=== PATIENT | female | born 1960 | race Caucasian/White ===

== ENCOUNTER 2018-06-20 20:00 | Inpatient (IN) | payer BC ==
[2018-06-20] MEDS ORDERED: ONDANSETRON INJ 4 MG/2 ML VIAL IV ONE (20:20)
[2018-06-20] MEDS ORDERED: ASPIRIN TABLET 325 MG TAB PO ONE (20:20)
--- NOTE | 2018-06-20 20:24 | ED.PDOC ---
History of Present Illness - General Chief Complaint: Chest Pain/GA Stated Complaint: CP, right arm numbness, cold, clammy, SOB, N/V Time Seen by Provider: 06/20/18 20:12 Source: patient Exam Limitations: no limitations - History of Present Illness Timing/Duration: 1-3 hours Severity: moderate Location: substernal, epigastric Activities at Onset: activity Prior Chest Pain/Cardiac Workup: no prior chest pain Improving Factors: nothing Worsening Factors: nothing Nitro Today/Relief: no nitro taken today Aspirin Treatment Today: unknown Associated Symptoms: chest pain, diaphoresis, nausea/vomiting, weakness Allergies/Adverse Reactions: Allergies Codeine Allergy (Verified 06/20/18 20:12) Morphine Allergy (Verified 06/20/18 20:12) Review of Systems - Review of Systems Constitutional: States: diaphoresis. Denies: fever EENTM: States: no symptoms reported Respiratory: States: short of breath. Denies: cough Cardiology: States: chest pain. Denies: edema, syncope Gastrointestinal/Abdominal: States: nausea, vomiting Genitourinary: States: no symptoms reported Musculoskeletal: States: no symptoms reported Skin: States: no symptoms reported Neurological: States: no symptoms reported Endocrine: States: no symptoms reported Hematologic/Lymphatic: States: no symptoms reported Past Medical History (General) - Patient Medical History Hx Seizures: No Hx Stroke: No Hx Dementia: No Hx Asthma: Yes Hx of COPD: No Hx Cardiac Disorders: No Hx Congestive Heart Failure: No Hx Pacemaker: No Hx Hypertension: Yes Hx Thyroid Disease: No Hx Diabetes: Yes Hx Gastroesophageal Reflux: Yes Hx Renal Disease: No Hx of HIV: No Hx MRSA: No Surgical History: appendectomy, cholecystectomy, Hysterectomy - Vaccination History Hx Tetanus, Diphtheria Vaccination: No Hx Influenza Vaccination: No - Social History Hx Tobacco Use: Yes Family Medical History - Family History Mother Hx Family Cancer: Yes Physical Exam - Physical Exam General Appearance: Alert, Anxious, Obvious distress Eyes, Ears, Nose, Throat Exam: PERRL/EOMI Neck: non-tender, full range of motion Respiratory: chest non-tender, lungs clear, normal breath sounds Cardiovascular/Chest: normal peripheral pulses, regular rate, rhythm, no edema Peripheral Pulses: radial,right: 2+ Gastrointestinal/Abdominal: normal bowel sounds, non tender, soft Extremity: normal range of motion, non-tender, normal inspection, no pedal edema Neurologic: alert, normal mood/affect, oriented x 3 Skin Exam: normal color, warm/dry Progress - EKG/XRAY/CT EKG: Sinus - with PAC's, no ST T wave changes Comments: rate 80, MT 150, QRS 82 Departure - Departure Clinical Impression: Acute kidney injury, Dehydration Heat exhaustion Qualifiers: Encounter type: initial encounter Qualified Code(s): T67.5XXA - Heat exhaustion , unspecified, initial encounter GERD (gastroesophageal reflux disease) Qualifiers: Esophagitis presence: with esophagitis Qualified Code(s): K21.0 - Gastro- esophageal reflux disease with esophagitis Disposition: Discharge to Home or Self Care Departure Forms: ED Discharge - Pt. Copy, Patient Portal Self Enrollment Instructions: DI for Chest Pain Decision To Admit - Decistion To Admit Decision to Admit Reason: Admit from ER - iv fluids and recheck labs Decision to Admit Date: 06/20/18 Decision to Admit Time: 22:04
[2018-06-20] MEDS ORDERED: SODIUM CHLORIDE 0.9% 1000ML 1,000 ML IVS ONE (20:26)
[2018-06-20] MEDS ORDERED: ALUM & MAG HYDROX-SIMETHICONE 30 ML, LIDOCAINE VISCOUS 2% 15 ML PO ONE ×2 (20:26)
--- NOTE | 2018-06-20 20:37 | RAD ---
EXAM DESCRIPTION: Chest,1 View CLINICAL HISTORY:58 years Female, chest pain Comparison: None FINDINGS: No focal lung consolidation. No pleural effusion. No pneumothorax. Cardiac and mediastinal silhouette is unremarkable. No acute osseous abnormality. Soft tissues are unremarkable. IMPRESSION: No acute findings. No focal lung consolidation. Electronically signed by: Mario Naidu MD 06/20/2018 8:36 PM CDT
[2018-06-20] MEDS: SODIUM CHLORIDE 0.9% (FLUSH) 10 ML SYG IV PRN ×2 (20:40→23:37)
[2018-06-20] MEDS ORDERED: ALUM & MAG HYDROX-SIMETHICONE 30 ML UD ONE (21:02)
[2018-06-20] MEDS ORDERED: LIDOCAINE HCL 2% (MOUTH-THROAT) 15 ML UD ONE (21:02)
[2018-06-20] MEDS ORDERED: fentaNYL CITRATE INJ 50 MCG/ML AMP IV ONE (21:31)
[2018-06-20] MEDS ORDERED: PROMETHAZINE HCL INJ 12.5 MG in SODIUM CHLORIDE 0.9% 50ML 50 ML IVPB ONE ×2 (22:44→22:46)
[2018-06-20] MEDS ORDERED: PROMETHAZINE HCL INJ 25 MG/ML VIAL ONE (22:45)
[2018-06-20] MEDS ORDERED: SODIUM CHLORIDE 0.9% 50ML 50 ML ONE (22:45)
--- NOTE | 2018-06-20 23:04 | HP ---
SUPERVISING PHYSICIAN: Jurgen Lockhart MD CHIEF COMPLAINT: Near syncope. HISTORY OF PRESENT ILLNESS: This is a 58-year-old female who came to the Emergency Room after spending a lot of time outside yesterday. Basically, around noon to 5:30, she was horseback riding. She was outside that entire time and on her way back to the house on the horse, she felt like she was going to fall off. When she got off the horse, she sat outside and drank some water. She felt a little bit better. She went inside and sat there for about 3 hours she says, and then started to have some nausea, vomiting and dizziness once again. For that reason, she came to the Emergency Room. She states the last time she urinated was about 1400 yesterday. In the Emergency Room, she was found to have elevation of BUN and creatinine of 27 and 2.76 respectively. CK was 256. White count was elevated at 14,000. Troponin was negative. Associated with the vomiting, she also had some lower pain in her chest around the bottom of the sternum. Due to the acute kidney injury and suspected heat exhaustion, she was referred for admission. I saw her this morning and she states she feels a little bit better than she did when she came in, however, I did review her labs and she has had an elevation in her BUN and creatinine of 32 and 3.28, respectively. Her CK has gradually gone up as well where initially it was 256 and is now 788. Troponin remains negative. She is not having any current chest pain. PAST MEDICAL HISTORY: 1. Hypertension. 2. Hyperlipidemia. 3. Diabetes mellitus. 4. Occasional urinary tract infections. 5. Gastroesophageal reflux disease. PAST SURGICAL HISTORY: 1. Cholecystectomy. 2. . 3. Hysterectomy. 4. Fibroid tumor removal. 5. Appendectomy. 6. Lasik eye surgery. 7. EGD and colonoscopy. She was found to have colonic polyps. HOME MEDICATIONS: 1. Aspirin 81 mg p.o. daily. 2. Cetirizine 10 mg p.o. daily. 3. Vitamin D3 5000 units p.o. daily. 4. Dexilant 40 mg p.o. daily. 5. Bentyl 10 mg p.o. b.i.d. p.r.n. 6. Victoza 1.2 mg subcutaneously at 3 o'clock. 7. Loratadine 10 mg p.o. daily. 8. Metformin 1000 mg p.o. daily. 9. Metoprolol 50 mg p.o. daily. 10. Multivitamin 1 capsule p.o. daily. 11. Niacin 500 mg p.o. daily. 12. Sumatriptan 50 mg p.o. every 2 hours as needed. ALLERGIES: CODEINE, MORPHINE, SODIUM PENTOTHAL, STRAWBERRIES. FAMILY HISTORY: Mother had metastatic cancer. Father had cardiac disease. SOCIAL HISTORY: She quit smoking in 1998. Occasional alcohol use and no illicit drug use. REVIEW OF SYSTEMS: CONSTITUTIONAL: No fever or chills. No recent weight loss or weight gain. HEENT: No headaches, vision changes, ear pain, nasal congestion or throat pain. RESPIRATORY: No cough, hemoptysis or pleuritic chest pain. CARDIOVASCULAR: She did have some lower sternal chest pain yesterday. No palpitations or peripheral edema. GASTROINTESTINAL: Positive for some nausea and vomiting. No diarrhea or constipation. GENITOURINARY: No dysuria, frequency or flank pain, but she has not urinated since 1400 yesterday. HEMATOLOGIC: No easy bruising and no transfusion reaction. MUSCULOSKELETAL: Occasional joint aches, but no muscle cramps or joint swelling. ENDOCRINE: No polydipsia, polyuria, polyphagia. No heat or cold intolerance. NEUROLOGIC: Positive for near syncope, but no actual full syncope. No paresthesias or seizures. PHYSICAL EXAMINATION: VITAL SIGNS: Blood pressure 124/80. Heart rate 64. Respiratory rate 16. Temperature 97.8. Oxygen saturation 99%. GENERAL: Ms. Crocker is a 58-year-old female who is in no active distress currently. HEENT: Normocephalic, atraumatic. Pupils are equal and reactive. No nasal drainage. Throat with moist mucosa. NECK: Supple. Midline trachea. No jugular venous distention. CHEST: Symmetrical with equal rise and fall of the chest with inspiration and expiration. Lung sounds are clear to auscultation bilaterally. CARDIOVASCULAR: Regular rate and rhythm. Normal S1, S2. ABDOMEN: Soft, obese. Positive bowel sounds. GENITOURINARY: Deferred. EXTREMITIES: Lower extremities with no significant edema. Pulses 2+. Capillary refill is less than 2 seconds. NEUROLOGIC: The patient is alert and oriented. No focal deficits. Cranial nerves II-XII are grossly intact. LABORATORY: Chest x-ray from yesterday shows no acute cardiopulmonary process. Labs are as discussed in history of present illness. ASSESSMENT: 1. Heat exhaustion with near-syncope. 2. Acute on chronic kidney injury secondary to #1. 3. Hypertension, currently controlled. 4. Diabetes mellitus. 5. Leukocytosis of unknown cause. 6. Chest pain, which appears to be non-cardiac. 7. Hypomagnesemia. PLAN: I did place the patient on chest pain protocol via serial enzymes. Her troponin has remained negative, however, CK is elevated. This is consistent with also her elevation of BUN and creatinine. I feel like her acute kidney injury is secondary to heat exhaustion and it appears she likely has some chronic renal insufficiency as well based on labs done at her primary care provider's office. There was one that was as high as 3.0. It looks like normal is about 1.2. Given the fact that she has an even higher elevation in her creatinine from when she came in, I am giving her additional IV fluids to include normal saline bolus of 1 liter and increasing her continuous fluids to 200 mL an hour. I have ordered a urinalysis, but she has not had urination since yesterday at 2 o'clock. Hopefully with he addition of fluids, she will produce some urine. I am going to order DVT and GI ulcer prophylaxis on her as well. If her blood sugars elevate, I am going to place her on sliding scale insulin, but would prefer to hold her metformin for now. I am going to order magnesium replacement on her as well. We will recheck her labs in the morning. If there is no improvement, I will contact Dr. Reich in [place] to assist in management. #[id number] [facility]
[2018-06-20] MEDS ORDERED: SODIUM CHLORIDE 0.9% (FLUSH) 10 ML SYG IV PRN (23:11)
[2018-06-20] MEDS ORDERED: IV SET AND CAP CHANGE INJ INJ SCH (23:30)
[2018-06-20] MEDS: LACTATED RINGERS 1,000 ML IVS PRN (23:37)
[2018-06-21] MEDS: ACETAMINOPHEN 325 MG TAB PO PRN (00:51)
[2018-06-21] MEDS: LACTATED RINGERS 1,000 ML IVS PRN ×4 (07:32→21:11)
[2018-06-21] MEDS ORDERED: SODIUM CHLORIDE 0.9% 1000ML 1,000 ML IVS PRN (08:13)
[2018-06-21] MEDS ORDERED: MAGNESIUM SULFATE PREMIX 2GM 2 GM in PREMIX BAG 1 BAG IVPB ONE (08:16)
[2018-06-21] MEDS ORDERED: MAGNESIUM SULFATE PREMIX 2GM 50 ML IVPB ONE (08:26)
[2018-06-21] MEDS ORDERED: CETIRIZINE HCL 10 MG TAB PO ONE (08:27)
[2018-06-21] MEDS ORDERED: MULTIPLE VITAMINS W/ MINERALS 1 EA TAB ONE (08:27)
[2018-06-21] MEDS: ASPIRIN (ENTERIC COATED) 81 MG TAB PO SCH (08:42)
[2018-06-21] MEDS: METOPROLOL TARTRATE 50 MG TAB PO SCH (08:42)
[2018-06-21] MEDS: MULTIPLE VITAMINS W/ MINERALS 1 EA TAB PO SCH (08:51)
[2018-06-21] MEDS: CHOLECALCIFEROL 2,000 IU TAB PO SCH (08:51)
[2018-06-21] MEDS: CETIRIZINE HCL 10 MG TAB PO SCH (08:51)
[2018-06-21] MEDS: NON-FORMULARY MEDICATION 1 EA MIS (Dexlansoprazole [Dexilant] 60 MG) PO SCH (08:52)
[2018-06-21] MEDS ORDERED: MINERALS PO SCH (09:00)
[2018-06-21] MEDS ORDERED: [UNRECOGNIZED DRUG - OTHER] PO SCH (09:00)
[2018-06-21] MEDS ORDERED: [UNRECOGNIZED DRUG - REMARK] PO SCH (09:00)
[2018-06-21] MEDS ORDERED: CHOLECALCIFEROL PO SCH (09:00)
[2018-06-21] MEDS ORDERED: MULTIPLE VITAMINS PO SCH (09:00)
[2018-06-21] MEDS: ENOXAPARIN SODIUM 30 MG/0.3 ML SYG SUBCU SCH (10:16)
[2018-06-21] MEDS ORDERED: cefTRIAXone SODIUM 1 GM VIAL ONE (13:10)
[2018-06-21] MEDS ORDERED: SODIUM CHL 0.9% 50ML MIN-BAG+ 50 ML IVPB ONE (13:10)
[2018-06-21] MEDS: cefTRIAXone SODIUM 1 GM in SODIUM CHL 0.9% 50ML MIN-BAG+ 50 ML IVPB SCH (13:13)
[2018-06-21] MEDS: LIRAGLUTIDE 1.2 MG SC SCH (14:51)
[2018-06-22] MEDS: LACTATED RINGERS 1,000 ML IVS PRN ×2 (02:00→07:12)
[2018-06-22] MEDS ORDERED: PANTOPRAZOLE SODIUM TAB 40 MG PO ONE (03:55)
[2018-06-22] MEDS ORDERED: PANTOPRAZOLE SODIUM TAB 40 MG PO SCH (06:30)
[2018-06-22] MEDS: NON-FORMULARY MEDICATION 1 EA MIS (Dexlansoprazole [Dexilant] 60 MG) PO SCH (08:27)
[2018-06-22] MEDS: MULTIPLE VITAMINS W/ MINERALS 1 EA TAB PO SCH (08:28)
[2018-06-22] MEDS: METOPROLOL TARTRATE 50 MG TAB PO SCH (08:28)
[2018-06-22] MEDS: ASPIRIN (ENTERIC COATED) 81 MG TAB PO SCH (08:28)
[2018-06-22] MEDS: ENOXAPARIN SODIUM 30 MG/0.3 ML SYG SUBCU SCH (08:28)
[2018-06-22] MEDS: CHOLECALCIFEROL 2,000 IU TAB PO SCH (08:28)
[2018-06-22] MEDS: CETIRIZINE HCL 10 MG TAB PO SCH (08:28)
[2018-06-22] MEDS ORDERED: NON-FORMULARY MEDICATION 1 EA MIS PO SCH (09:00)
[2018-06-22] MEDS ORDERED: DEXTROSE 5% 1000ML 1,000 ML IVS PRN (09:28)
[2018-06-22] MEDS ORDERED: DEXTROSE 50% 25 GM/50 ML SYG IV PRN (09:30)
[2018-06-22] MEDS ORDERED: GLUCAGON INJ 1 MG VIAL SUBCU PRN (09:30)
[2018-06-22] MEDS: KCL 20MEQ/0.45% NS 1,000 ML IVS PRN ×2 (09:37→21:26)
[2018-06-22] MEDS: INSULIN LISPRO 100 UNITS/ML PEN SUBCU SCH ×3 (11:28→20:51)
[2018-06-22] MEDS ORDERED: SODIUM CHL 0.9% 50ML MIN-BAG+ 50 ML IVPB ONE (12:26)
[2018-06-22] MEDS ORDERED: cefTRIAXone SODIUM 1 GM VIAL ONE (12:27)
[2018-06-22] MEDS: cefTRIAXone SODIUM 1 GM in SODIUM CHL 0.9% 50ML MIN-BAG+ 50 ML IVPB SCH (12:30)
[2018-06-22] MEDS ORDERED: SUMAtriptan SUCCINATE 50 MG TAB PO PRN (13:33)
[2018-06-22] MEDS: LIRAGLUTIDE 1.2 MG SC SCH (14:30)
[2018-06-22] MEDS: ACETAMINOPHEN 325 MG TAB PO PRN (19:09)
--- NOTE | 2018-06-23 00:26 | PN ---
DATE: 06/22/18 SUPERVISING PHYSICIAN: Jurgen Lockhart M.D. SUBJECTIVE: The patient notes she feels a little bit better this morning. She is still tired and a little achy. She has had no further complaints. OBJECTIVE: VITAL SIGNS: temperature 98.5, pulse 64, blood pressure 137/81, respirations 20, satting 98% on room air. I's and O's show a negative balance of 67 with 2083 in, 2150 out. Weight is 93.7 kg. CHEST: Lung sounds are clear to auscultation. HEART: Regular rate and rhythm. ABDOMEN: Obese but soft, non- tender. Positive bowel sounds. EXTREMITIES: No clubbing, cyanosis or edema. NEUROLOGIC: She is alert and oriented times three. LABORATORY: White count 4,600, hemoglobin and hematocrit show to be at 9.8 and 28.8 respectively with platelet count 242,000. Differential is without a left shift. Chemistries show normal electrolytes today with potassium 4.4, BUN is down to 19, creatinine down to 1.43 which is a significant improvement from admission and creatinine maximum of 3.28. Calcium is normal at 8.9, magnesium 1.8. CPK is down to 338 today. ASSESSMENT: 1. Heat exhaustion with near-syncopal episode. 2. Acute on chronic kidney injury secondary to #1. 3. Hypertension, controlled. 4. Diabetes mellitus., controlled. 5. Leukocytosis likely from demarginalization from stress event, now back to baseline status. 6. Chest pain without any evidence of acute myocardial infarction. Troponins were negative and EKG was without any acute changes. 7. Hypomagnesemia, improved with replacement. PLAN: Will continue with her fluids today as she is getting close to being euvolemic and as well as her creatinine is improving. The intention will be to discharge tomorrow after an additional 24 hours of aggressive fluid management and transition to make sure the patient is taking adequate p.o. intake. Again, it looks like reviewing the medical records that her normal creatinine is around 1.2. Will continue with DVT prophylaxis and continue to monitor blood sugars on sliding scale, and again anticipate going home tomorrow. Until that point, continue to monitor and treat appropriately. #[id number] [facility]
[2018-06-23 05:48] VITALS: O2SAT 97
[2018-06-23] MEDS: INSULIN LISPRO 100 UNITS/ML PEN SUBCU SCH ×2 (07:29→11:40)
[2018-06-23] MEDS ORDERED: NIACIN 500 MG TAB PO SCH (09:00)
[2018-06-23] MEDS: CETIRIZINE HCL 10 MG TAB PO SCH (09:50)
[2018-06-23] MEDS: ASPIRIN (ENTERIC COATED) 81 MG TAB PO SCH (09:50)
[2018-06-23] MEDS: MULTIPLE VITAMINS W/ MINERALS 1 EA TAB PO SCH (09:50)
[2018-06-23] MEDS: ENOXAPARIN SODIUM 30 MG/0.3 ML SYG SUBCU SCH (09:50)
[2018-06-23] MEDS: CHOLECALCIFEROL 2,000 IU TAB PO SCH (09:50)
[2018-06-23] MEDS: METOPROLOL TARTRATE 50 MG TAB PO SCH (09:52)
[2018-06-23] MEDS ORDERED: MAGNESIUM SULFATE PREMIX 2GM 50 ML IVPB ONE (10:22)
[2018-06-23 11:09] VITALS: BP 144/82; TEMP 98.3
--- NOTE | 2018-06-27 11:26 | DS ---
SUPERVISING PHYSICIAN: Jurgen Lockhart MD ADMISSION DIAGNOSIS: 1. Heat exhaustion with near-syncopal episode. 2. Acute on chronic kidney injury secondary to #1. 3. Hypertension, currently controlled. 4. Diabetes mellitus. 5. Leukocytosis of unknown cause. 6. Chest pain, rule out. 7. Hypomagnesemia. DISCHARGE DIAGNOSIS: 1. Heat exhaustion with near-syncopal episode secondary to environmental exposure. 2. Acute on chronic kidney injury secondary to #1 with creatinine returning to baseline status after IV fluids. 3. Hypertension, controlled. 4. Diabetes mellitus, controlled. 5. Leukocytosis, likely from demargination from stress event as noted in #1, back to baseline status prior to discharge. 6. Chest pain without any evidence of acute myocardial infarction with troponins all negative times 3 and EKG without acute ST changes or T-wave inversions to indication myocardial infarction or acute cardiac event. 7. Hypomagnesemia secondary to dehydration, improved with replacement parenterally and the patient started on p.o. replacement. REASON FOR HOSPITALIZATION: Ms. Crocker is a 58-year-old female patient who presented to the Emergency Room on 06/20/18 after spending a lot of time outside the day before. Basically, around noon to 5:30, she was horseback riding. She was outside that entire time and on her way back to the house on the horse, she felt like she was going to fall off. When she got off the horse , she sat outside and drank some water. She felt a little bit better at that time. She went inside and sat there for about 3 hours and then started to have some nausea, vomiting and dizziness. At that point, she came to the Emergency Room for evaluation. She stated the last time she urinated was about 1400 the day before admission. In the Emergency Room, she was found to have elevation of BUN and creatinine of 27 and 2.76, respectively. CK was 256. White count was elevated at 14,000. Troponin was negative. Associated with the vomiting, she also had some lower pain in her chest around the bottom of the sternum. Due to the acute kidney injury and suspected heat exhaustion, she was referred for admission. She was admitted in stable condition. LABORATORY: White count on admission was elevated at 14,000. At discharge, it was 4,600. Initial hemoglobin was 12.3, hematocrit 36.4. At discharge, hemoglobin was 9.8, hematocrit 28.8 with platelet count 242,000. Differential did show a left shift which resolved prior to discharge. Coagulation studies showed normal PT and PT-T. Chemistries on admission showed electrolytes to be within normal limits. Anion gap was elevated at 19.,6 BUN 27, creatinine 2.76. Magnesium was low at 1.4. Bilirubin, AST, ALT, alkaline phosphatase were all normal. CPK was elevated at 256 and troponin less than 0.02. BUN prior to discharge with fluids had decreased to baseline at 16 as well as creatinine responded well to fluids and was back to baseline after peaking at 3.28 down to 1.29. Blood sugars were stable between 108 and 161. Calcium was normal at discharge at 9.2. CPK did show a maximum of 768 after admission, but prior to discharge had gone down to near baseline levels at 159. She had three sets of troponins, all being less than 0.02. Urinalysis on admission showed dark yellow , clear urine with moderate leukocyte esterase on dipstick with microscopic revealing 20 to 30 WBCs, 3 to 5 epithelials and 3+ bacteria. MICROBIOLOGY: Urine culture final results showed 50,000 to 200,000 colony forming units per mL with mixed urogenital bryanna. RADIOLOGY: She had chest x-ray in the Emergency Department and per radiologic interpretation showed no acute findings, no focal consolidations. EKGs in the Emergency Room and after admission showed a sinus rhythm with a few PACs, but no ST or T-wave changes to acute ischemic or myocardial injury and no acute changes between the initial and final EKG. HOSPITAL COURSE: Ms. Crocker was admitted on 06/20/18 as noted above for heat exhaustion, syncopal episode and some chest pain. She was monitored on cardiac telemetry as well as cardiac enzymes times 3 which were all negative. She was started on IV fluids, given magnesium replacement as well and showed good response to fluid challenges with her creatinine levels returning to baseline status. On the morning of discharge, the patient was clinically stable and therefore was to be discharged to home to continue with outpatient management. She had no return of her chest pains, no acute changes on EKGs or cardiac telemetry. PLAN: Ms. Crocker was discharged on 06/23/18 with instructions to followup with her primary care provider, Dr. Pascual. She was to call his office in the following week to make an appointment as needed. She was encouraged to push fluids to prevent dehydration and to avoid excessive temperature changes especially heat for the next several days. She was to return to work after 48 hours or once cleared by her primary care provider. She was to return to the hospital if she had worsening symptoms. Diet at discharge is diabetic diet as tolerated. Activity to increase slowly as tolerated, walking as tolerated and again avoid extreme temperatures to prevent further heat exhaustion. No medications were prescribed at discharge. All other medications that she was on prior to hospitalization were resumed as normal. Condition at discharge was stable and improved. #[id number] [facility]
== END 2018-06-23 12:05 | disposition home or self-care (01) | DRG 923 ==
LOC: ER 20:00 → MS 22:58 → OBSVTOIN 06-21 10:51
PROVIDERS: ADMIT Nurse Practitioner Family; ATTEND Nurse Practitioner
DX: T67.5XXA Heat exhaustion, unspecified, initial encounter (principal); N17.9 Acute kidney failure, unspecified; I12.9 Hypertensive chronic kidney disease with stage 1 through stage 4 chronic kidney disease, or unspecified chronic kidney disease; E78.5 Hyperlipidemia, unspecified; E11.22 Type 2 diabetes mellitus with diabetic chronic kidney disease; K21.9 Gastro-esophageal reflux disease without esophagitis; N18.9 Chronic kidney disease, unspecified; R07.89 Other chest pain; E83.42 Hypomagnesemia; E86.0 Dehydration; E66.9 Obesity, unspecified; X30.XXXA Exposure to excessive natural heat, initial encounter; Y93.52 Activity, horseback riding; Y92.9 Unspecified place or not applicable; Y99.9 Unspecified external cause status; Z88.5 Allergy status to narcotic agent; Z88.8 Allergy status to other drugs, medicaments and biological substances; Z87.891 Personal history of nicotine dependence; Z87.440 Personal history of urinary (tract) infections; Z79.82 Long term (current) use of aspirin; Z79.4 Long term (current) use of insulin; Z79.899 Other long term (current) drug therapy